=== PATIENT | male | born 1980 | race Caucasian/White ===

== ENCOUNTER 2024-09-13 07:53 | Emergency (ER) | payer MEDICAID, OTHER ==
[~2024-09-13] VITALS: Ht 167.6 cm; Wt 63.8 kg
--- NOTE | 2024-09-13 08:48 | ED.PDOC ---
History of Present Illness HPI Comments 44 year old male with a Hx of Seizures was BIBA for the c/c of a Mechanical Fall Injury. Per EMS pt experienced a mechanical fall where he fell face first into the street. Front teeth are noted to be loose, and have a bloody face at this time. EMS notes that he has not been compliant with his Seizure medication for years. No other associated symptoms, modifiers, recent injuries or sick contacts present at this time. Chief Complaint: Fall Injury Time Seen by MD: 08:42 Reviewed Notes: Nurses Notes, Stockroom Attendant Notes, Medications, Allergies Allergies: Coded Allergies: NO KNOWN ALLERGIES (Unverified , 09/13/24) Information Source: Patient Mode of Arrival: EMS Severity: Moderate Timing: Hours Duration: Since onset, Hours Prehospital treatment: None Past Medical History PAST MEDICAL HISTORY: Seizures Constitutional: denies: chills, diaphoresis, fatigue, fever, malaise, sweats, weakness, others EENTM: denies: blurred vision, double vision, ear bleeding, ear discharge, ear drainage, ear pain, ear ringing, eye pain, eye redness, hearing loss, mouth pain, mouth swelling, nasal discharge, nose bleeding, nose congestion, nose pain, photophobia, tearing, throat pain, throat swelling, voice changes, others Respiratory: denies: cough, hemoptysis, orthopnea, SOB at rest, shortness of breath, SOB with excertion, stridor, wheezing, others Cardiovascular: denies: chest pain, dizzy spells, diaphoresis, Dyspnea on exertion, edema, irregular heart beat, left arm pain, lightheadedness, palpitati ons, PND, syncope, others Gastrointestinal: denies: abdomen distended, abdominal pain, blood streaked bowels, constipated, diarrhea, dysphagia, difficulty swallowing, hematemesis, melena, nausea, poor appetite, poor fluid intake, rectal bleeding, rectal pain, vomiting, others Genitourinary: denies: burning, dysuria, flank pain, frequency, hematuria, incontinence, penile discharge, penile sore, pain, testicle pain, testicle swelling, urgency, others Neurological: denies: dizziness, fainting, headache, left sided numbness, left sided weakness, numbness, paresthesia, pre-existing deficit, right sided numbness, right sided weakness, seizure, speech problems, tingling, tremors, weakness, others Musculoskeletal: denies: back pain, gout, joint pain, joint swelling, muscle pain, muscle stiffness, neck pain, others Integumetry: denies: bruises, change in color, change in hair/nails, dryness, laceration, lesions, lumps, rash, wounds, others Allergic/Immunocompromised: denies: Difficulty Healing, Frequent Infections, Hives, Itching, others Hematologic/Lymphatic: denies: anemia, blood clots, easy bleeding, easy bruising, swollen glands, others Endocrine: denies: excessive hunger, excessive sweating, excessive thirst, excessive urination, flushing, intolerance to cold, intolerance to heat, unexplained weight gain, unexplained weight loss, others Psychiatric: denies: anxiety, bipolar disorder, depression, hopeless, panic disorder, schizophrenia, sleepless, suicidal, others All Other Systems: Reviewed and Negative Physical Exam General Appearance: Mild Distress, Normal, Other (Bloody face, bleeding gums) HEENT: Normal ENT Inspection, Pharynx Normal, TMs Normal Neck: Full Range of Motion, Non-Tender, Normal Respiratory: Chest Non-Tender, Lungs Clear, No Accessory Muscle Use, No Respiratory Distress, Normal Breath Sounds Cardiovascular: No Edema, No JVD, No Murmur, Normal Peripheral Pulses, Regular Rate/Rhythm Breast Exam: Deferred Gastrointestinal: Non Tender, No Pulsatile Mass, Normal Bowel Sounds, Soft Genitalia: Deferred Pelvic: Deferred Rectal: Deferred Extremities: No calf tenderness, Normal capillary refill, Normal inspection, Normal range of motion, Non-tender, No pedal edema Musculoskeletal : Apperance: Normal Neurologic: Alert, No Motor Deficits, Normal Mood Cerebellar Function: Normal Reflexes: Normal Skin: Dry, Normal Color, Warm Lymphatic: No Adenopathy Was a procedure done? Was a procedure done?: No Differential Dx Considerations may include: Mandible dislocation, mandible fracture X-Ray, Labs, Meds, VS Vital Signs Date Time Temp Pulse Resp B/P (MAP) Pulse Ox O2 Delivery O2 Flow Rate FiO2 09/13/24 13:13 98.6 101 16 126/86 (99) 95 98.6 09/13/24 11:24 101 18 99 Room Air* 0 21 09/13/24 11:02 97.9 101 18 132/81 (98) 99 97.9 09/13/24 07:58 97.7 79 18 136/90 (105) 100 97.7 Time of 1ST Reevaluation: 09:22 Reevaluation 1ST: Unchanged Patient Education/Counseling: Diagnosis, Treatment Family Education/Counseling: No Family Present SEPSIS Sepsis Screen Orders/Vitals/Labs Physician Orders Head Without Contrast (09/13/24 08:30) Imaging Transfer Request (09/13/24 11:06) Vital Signs Date Time Temp Pulse Resp B/P (MAP) Pulse Ox O2 Delivery O2 Flow Rate FiO2 09/13/24 13:13 98.6 101 16 126/86 (99) 95 98.6 09/13/24 11:24 101 18 99 Room Air* 0 21 09/13/24 11:02 97.9 101 18 132/81 (98) 99 97.9 09/13/24 07:58 97.7 79 18 136/90 (105) 100 97.7 Departure 1 Departure Time of Disposition: 15:36 (Patient is up to [facility] as a transfer.Patient has a madible fracture and dislocation.) Impression: Primary Impression: Fracture, mandible closed, subcondylar Qualified Codes: S02.621A - Fracture of subcondylar process of right mandible, initial encounter for closed fracture Additional Impression: Dislocated mandible Qualified Codes: S03.00XA - Dislocation of jaw, unspecified side, initial encounter Disposition: 02 [facility]ORT TERM [facility]OSPITAL Condition: Serious Critical Care Note Critical Care Time?: No Stability Stability form required: No Heart Score Heart Score: Heart Score Response (Comments) Value History N/A 0 EKG N/A 0 Age N/A 0 Risk Factors N/A 0 Troponin N/A 0 Total 0 I personally scribed for SHOBHA RO MD ([email or web address]) on 09/13/24 at 08:48. Electronically submitted by Jean-Pierre Lugo ([email or web address]). SHOBHA RO MD Sep 13, 2024 08:48
--- NOTE | 2024-09-13 09:37 | DVH ---
EXAM: CT HEAD WITHOUT CONTRAST INDICATION: Fall TECHNIQUE: CT of the head without intravenous contrast. Coronal and sagittal reformatted images are s ubmitted. Radiation Dose : 1. Head: CT Dose: CTDI volume is 55.1 mGy. Dose-length product is 1103.73 mGy*cm The dose indicators for CT are the volume Computed Tomography (CT) Dose Index (CTDIvol) and the Dose Length Product (DLP), and are measured in units of mGy and mGy-cm, respectively. These indicators are not patient dose, but values generated from the CT scanner acquisition factors. The report includes radiation exposure data for exposures received during this examination. All CT scans at this medical facility are performed using dose modulation techniques as appropriate to a performed exam including the following: Automated exposure control was utilized; adjustment of the MA and/or KV according to patient size; and use of iterative reconstruction technique. COMPARISON: None FINDINGS: There is no evidence of acute intracranial hemorrhage, extra-axial collection, mass effect, midline s hift, herniation or hydrocephalus. Encephalomalacia right temporal lobe. Generalized volume loss. The ventricles, sulci and cisterns are age appropriate. The wilburn-white differentiation is intact. Mucosal thickening in the maxillary sinuses. Mastoid air cells are clear. No depressed calvarial fracture. Displaced right mandibular condyle fracture. Displaced fracture frag ment is subluxated anteriorly from the condylar fossa. Multiple foci of soft tissue gas in the right temporal region. Postsurgical changes from prior right temporal craniotomy. The surrounding soft tiss ues are unremarkable. IMPRESSION: 1. No acute intracranial abnormality. 2. Acute displaced right mandibular condyle fracture resulting in right temporomandibular joint dislo cation.
[2024-09-13 11:24] VITALS: PULSE 101; RESP 18; O2SAT 99
[2024-09-13 13:13] VITALS: BP 126/86; PULSE 101; RESP 16; TEMP 98.6; O2SAT 95
== END 2024-09-13 10:41 | disposition short-term general hospital (02) ==
LOC: EDBD 07:53 → ER 07:53
DX: S02.621A Fracture of subcondylar process of right mandible, initial encounter for closed fracture (principal); W18.39XA Other fall on same level, initial encounter; Y93.89 Activity, other specified; Y92.89 Other specified places as the place of occurrence of the external cause; Y99.8 Other external cause status
CPT/HCPCS: 70450